=== PATIENT | female | born 1955 | race Caucasian/White ===

== ENCOUNTER 2024-06-18 23:31 | Emergency (ER) | payer MEDICARE, SELFPAY ==
[2024-06-18 23:33] VITALS: BP 142/88
--- NOTE | 2024-06-18 23:54 | ED.MUSCINJ ---
HPI-Injury
General
Chief Complaint: Extremity Pain (non-traumatic)
Source: patient and family
Exam Limitations: none
Time Seen by Provider: 06/18/24 23:39
Nursing documentation reviewed up to this point in time: agreed with
History of Present Illness-Injury
Initial Injury comments:
Pleasant 69-year-old female that presents with a stuck ring on her swollen left finger. Patient denies any trauma. Denies any other complaints.
Past History
Past History
ED Past Medical History: HTN
ED Past Surgical History: None
Review of Systems
Review of Systems
Allergies reviewed?: Yes
All Other Systems: Not applicable
Constitutional: Reports no symptoms
EENT: Reports no symptoms
Respiratory: Reports no symptoms
Cardiac: Reports no symptoms
ABD/GI: Reports no symptoms
: Reports no symptoms
Musculoskeletal: Reports joint swelling
Skin: Reports no symptoms
Neurological: Reports no symptoms
Endocrine: Reports no symptoms
Hematologic/Lymphatic: Reports no symptoms
Psychiatric: Reports no symptoms
Musculoskeletal Injury Exam
Musculoskeletal Injury Exam
Left Fourth Finger:
Pain with Movement?: None
Tender to palpation?: None
Soft tissue swelling?: Mild
External deformity and angulation?: None
Joint effusion?: Mild
Contusion?: None
Hematoma-local bleeding into tissue?: None
Strain- Sprain- Tear (Connective tissue injury)?: None
Crepitus with movement?: No
Range of motion: Full
Distal skin color and temperature: normal-warm & good color
Capillary Refill: normal
Normal distal neurovascular exam?: Yes
Phy Exam
General Physical Exam
General Presentation: well appearing and mild distress
General age: appears stated age
General Skin: warm and dry
General Habitus: normal
General Mental: alert
General Hydration: appears well hydrated
Pulmonary Exam
Pulmonary Exam: no respiratory distress
Neurological Exam
Neurological Exam: alert and oriented x3
Musculoskeletal Exam
Musculoskeletal Exam: full ROM
Skin Exam
Skin Exam: normal color and warm/dry
Psychiatric Exam
Psychiatric Exam: normal mood/affect
Procedures
Ring removal
Ring removed with: ring cutters
Is finger swollen distally?: Yes
Distal sensation: intact to touch
Distal capillary refill: brisk
Additional information:
Patient tolerated procedure well with no immediate adverse effects.
*Critical Care Note
Total Time (30-74mins, 75-104mins- exclusive of procedures): Not Applicable
ED Attending Note
-
Portions of this chart may have been created with voice recognition software.� Occasional wrong word or��sound alike� substitutions may have occurred due to the inherent limitations of voice recognition software.
Discharge Plan
Departure
Patient Disposition: Home (Routine Discharge)
Date of Disposition: 06/19/24
Time of Disposition: 00:02
Patient with high blood pressure during this ER visit?: Yes
Discharge Problem:
ring removal
Instructions: Muscle and Bone Pain (DC), BLOOD PRESSURE
Prescriptions:
No Action
prednisone 10 MG tablet
10 mg PO .TAPER Qty: 30 0RF
Rx Instructions:
Take 40mg daily x3days, 30mg daily x3days,
20mg daily x3days, 10mg daily x3days.
Referrals:
Akosua Carver DO [Family Provider] -
Activity Restrictions/Additional Instructions:
It was a pleasure meeting you and taking part in your care. We hope for your continued healing and wellness.
Please read discharge instructions in their entirety. However, they are for general education and may not describe your exact diagnosis at discharge. Information on your ER visit and medical conditions were discussed with you along with appropriate
follow up information...
If indicated, please take your medications as instructed and indicated on discharge paperwork.
Please schedule a follow up appointment as directed. Call to schedule an appointment
Please return to the emergency department with ANY change in, persisting, or worsening of symptoms. If any of your symptoms do not improve, or persist, or become more severe within 6-12 hours, please return to the emergency department for further
care.
Please return to the emergency department if you develop a headache, neck pain/stiffness, fever greater than 100.4F, chest pain, shortness of breath, persistent nausea, vomiting, slurred speech, difficulty walking, numbness/tingling, weakness, signs
of infection or any other symptoms that are worrisome to you.
If you have any questions or concerns please do not hesitate to call the Hospital at or E-mail me directly at [email or web address]
Interventions
Interventions:
*Risk Screen - Suicide Last Done: 06/18/24 23:33
*General Assessment Last Done: 06/18/24 23:33
*Neglect/Abuse Screening Last Done: 06/18/24 23:33
ED- Fall Risk Assessment Last Done: 06/19/24 00:09
*ED COVID-19 Vaccine History Last Done: 06/19/24 00:09
*Nursing Disposition Last Done: 06/19/24 00:09
ED-Skin Assessment Last Done: 06/19/24 00:07
ED-Peripheral Vascular Assessment Last Done: 06/19/24 00:07
ED-Musculoskeletal Assessment Last Done: 06/19/24 00:07
Discharge Date and Time
Discharge Date/Time: 06/19/24 00:09
Print Language: NEPALESE
== END 2024-06-19 00:09 | disposition home or self-care (01) ==
LOC: EMR 23:31
PROVIDERS: EMERGENCY PHYSICIAN Student in an Organized Health Care Education/Training Program; FAMILY PHYSICIAN Family Medicine
DX: S60.455A Superficial foreign body of left ring finger, initial encounter (principal); W49.04XA Ring or other jewelry causing external constriction, initial encounter; I10 Essential (primary) hypertension
CPT/HCPCS: 99282